=== PATIENT | female | born 1980 | race Caucasian/White ===

== ENCOUNTER 2017-10-04 18:57 | Emergency (ER) | payer BC ==
[2017-10-04 19:43] LABS: PLATELET COUNT 230 10^3/uL (150-400)
--- NOTE | 2017-10-04 19:51 | EDPHY ---
H & P Time Seen by Provider: 10/04/17 19:50 HPI/ROS: Chief complaint. Abdominal pain HPI. 37-year-old female visiting from [facility]. Low abdominal pain that began last night. It is worse with movement. Nausea without vomiting or diarrhea. Pain is across the low abdomen as sharp and crampy. Right equals left. Pain is worse with movement and walking. No urinary symptoms. No fever. No chest discomfort or trouble breathing. No similar symptoms previously. No previous abdominal surgery. ROS Constitutional. no fever/chills, no weakness Eyes. no problems with vision ENT. no sore throat, no nasal drainage Cardiovascular. no chest pain Respiratory. no shortness of breath, no cough Abdominal. Low abdominal pain with nausea . no problems urinating MS. no calf pain/swelling, no neck/back pain, no joint pain Skin. no rash Lymph. no swollen glands Neuro. no headache, no dizziness, no difficulty walking or with speech Past Medical/Surgical History: Orthopedic surgery, IUD Social History: Single, nonsmoker, no alcohol Smoking Status: Never smoked Physical Exam: General Appearance: Alert well-developed female mild distress vital signs are stable Eyes: Pupils equal and round no pallor or injection. ENT, Mouth: Mucous membranes are moist. Respiratory: There are no retractions, lungs are clear to auscultation. Cardiovascular: Regular rate and rhythm. Gastrointestinal: Abdomen is soft suprapubic tenderness and both adnexal tenderness. No particular pain at McBurney's point. Normal bowel sounds. No masses Neurological: Awake and alert, sensory and motor exams grossly normal. Skin: Warm and dry, no rashes. Musculoskeletal: Neck is supple nontender. Extremities symmetrical, full range of motion. Psychiatric: Patient is oriented X 3, there is no agitation. Constitutional: Initial Vital Signs Heart Rate 59 L 10/04/17 19:08 Respiratory Rate 18 10/04/17 19:08 Blood Pressure 129/70 H 10/04/17 19:08 O2 Sat (%) 99 10/04/17 19:08 O2 Delivery Mode Room Air Allergies/Adverse Reactions: No Known Allergies Allergy (Unverified 10/04/17 19:08) Home Medications: Medication Instructions Recorded NK [No Known Home Meds] 10/04/17 Medical Decision Making - Diagnostics Imaging Results: Imaging Impressions Abdomen Ultrasound 10/04/17 20:17 Impression: Appendix not identified. Findings and recommendations discussed with Emergency Department physician, LEONOR BLOCK at 21:24 hour, 10/04/2017. Final report concurs with initial preliminary interpretation. Pelvic/Renal Ultrasound 10/04/17 20:17 Impression: 1. IUD appears in good position. 2. Right ovarian dominant follicle, measuring 1.8 cm. 3. No ovarian torsion or significant free fluid. Findings and recommendations discussed with Emergency Department physician, Leonor Block M.D., at 2123 hours, on October 04, 2017. Final report concurs with initial preliminary interpretation. Abdomen CT 10/04/17 21:48 Impression: 1. Constipation with a large amount of stool throughout the colon. 2. No CT evidence of appendicitis, abscess or bowel obstruction. Findings and recommendations discussed with Emergency Department physician, LEONOR BLOCK at 23:00 hour, 10/04/2017. Final report concurs with initial preliminary interpretation. Ultrasound shows IUD to be in good position. Ovarian cyst right ovary 1.8 cm. No torsion. No free fluid. Appendix not visualized. Reviewed by me and discussed with CT abdomen and pelvis shows constipation. No evidence for appendicitis, diverticulitis, bowel obstruction Procedures: IV normal saline. Morphine for pain. ED Course/Re-evaluation: Re-evaluation 9:35 p.m.. Patient and I discussed imaging and lab results. We discussed treatment plan including recommendation for CT. She expresses understanding and agreement Re-evaluation at 11:25 p.m.. Patient is stable. She and I discussed treatment plan including criteria for return importance of follow-up and further evaluation. She expresses understanding and agreement. Patient will be discharged with a bottle of GoLYTELY. Differential Diagnosis: I considered appendicitis, ectopic , urinary tract infection, ovarian cyst - Data Points Laboratory Results: Laboratory Results 10/04/17 19:20 10/04/17 19:20 10/04/17 10/04/17 10/04/17 22:04 19:20 19:20 WBC RBC Hgb Hct MCV MCH MCHC RDW Plt Count MPV Neut % (Auto) Lymph % (Auto) [place] % (Auto) Eos % (Auto) Baso % (Auto) Nucleat RBC Rel Count Absolute Neuts (auto) Absolute Lymphs (auto) Absolute Monos (auto) Absolute Eos (auto) Absolute Basos (auto) Absolute Nucleated RBC Immature Gran % Immature Gran # Sodium 140 mEq/L mEq/L (135-145) Potassium 4.4 mEq/L mEq/L (3.3-5.0) Chloride 101 mEq/L mEq/L (97-110) Carbon Dioxide 26 mEq/l mEq/l (22-31) Anion Gap 13 mEq/L mEq/L (8-16) BUN 18 mg/dL mg/dL (7-23) Creatinine 1.1 mg/dL H mg/dL (0.6-1.0) Estimated GFR 57 Glucose 93 mg/dL mg/dL (70-100) Calcium 9.4 mg/dL mg/dL (8.5-10.4) Beta HCG, Qual NEGATIVE Urine Color PALE YELLOW Urine Appearance CLEAR Urine pH 6.0 (5.0-7.5) Ur Specific [place] 1.005 (1.002-1.030) Urine Protein NEGATIVE (NEGATIVE) Urine Ketones NEGATIVE (NEGATIVE) Urine Blood NEGATIVE (NEGATIVE) Urine Nitrate NEGATIVE (NEGATIVE) Urine Bilirubin NEGATIVE (NEGATIVE) Urine Urobilinogen NEGATIVE EU EU (0.2-1.0) Ur Leukocyte Esterase NEGATIVE (NEGATIVE) Urine RBC 1-3 /hpf /hpf (0-3) Urine WBC 0-1 /hpf /hpf (0-3) Ur Epithelial Cells NONE SEEN /lpf /lpf (NONE-1+) Urine Bacteria TRACE /hpf H /hpf (NONE SEEN) Urine Glucose NEGATIVE (NEGATIVE) 10/04/17 19:20 WBC 11.04 10^3/uL H 10^3/uL (3.80-9.50) RBC 4.29 10^6/uL 10^6/uL (4.18-5.33) Hgb 13.9 g/dL g/dL (12.6-16.3) Hct 41.6 % % (38.0-47.0) MCV 97.0 fL fL (81.5-99.8) MCH 32.4 pg pg (27.9-34.1) MCHC 33.4 g/dL g/dL (32.4-36.7) RDW 12.6 % % (11.5-15.2) Plt Count 230 10^3/uL 10^3/uL (150-400) MPV 11.4 fL fL (8.7-11.7) Neut % (Auto) 65.3 % % (39.3-74.2) Lymph % (Auto) 24.8 % % (15.0-45.0) [place] % (Auto) 8.0 % % (4.5-13.0) Eos % (Auto) 1.1 % % (0.6-7.6) Baso % (Auto) 0.4 % % (0.3-1.7) Nucleat RBC Rel Count 0.0 % % (0.0-0.2) Absolute Neuts (auto) 7.22 10^3/uL H 10^3/uL (1.70-6.50) Absolute Lymphs (auto) 2.74 10^3/uL 10^3/uL (1.00-3.00) Absolute Monos (auto) 0.88 10^3/uL H 10^3/uL (0.30-0.80) Absolute Eos (auto) 0.12 10^3/uL 10^3/uL (0.03-0.40) Absolute Basos (auto) 0.04 10^3/uL 10^3/uL (0.02-0.10) Absolute Nucleated RBC 0.00 10^3/uL 10^3/uL (0-0.01) Immature Gran % 0.4 % % (0.0-1.1) Immature Gran # 0.04 10^3/uL 10^3/uL (0.00-0.10) Sodium Potassium Chloride Carbon Dioxide Anion Gap BUN Creatinine Estimated GFR Glucose Calcium Beta HCG, Qual Urine Color Urine Appearance Urine pH Ur Specific [place] Urine Protein Urine Ketones Urine Blood Urine Nitrate Urine Bilirubin Urine Urobilinogen Ur Leukocyte Esterase Urine RBC Urine WBC Ur Epithelial Cells Urine Bacteria Urine Glucose Medications Given: Discontinued Medications Sodium Chloride (Ns) 1,000 mls @ 0 mls/hr IV EDNOW ONE; Wide Open PRN Reason: Protocol Stop: 10/04/17 20:18 Last Admin: 10/04/17 20:26 Dose: 1,000 mls Morphine Sulfate (Morphine) 4 mg IVP EDNOW ONE Stop: 10/04/17 20:18 Last Admin: 10/04/17 20:27 Dose: 4 mg Ondansetron HCl (Zofran) 4 mg IVP EDNOW ONE Stop: 10/04/17 20:28 Last Admin: 10/04/17 20:28 Dose: 4 mg Polyethylene Glycol/Electrolytes (Gavilyte - G) 4,000 ml PO ONCE ONE Stop: 10/04/17 23:08 Last Admin: 10/04/17 23:19 Dose: 4,000 ml Departure - Departure Disposition: Home, Routine, Self-Care Clinical Impression: Abdominal pain Qualifiers: Abdominal location: lower abdomen, unspecified Qualified Code(s): R10.30 - Lower abdominal pain, unspecified Condition: Good Instructions: Constipation (ED) Additional Instructions: Increased fluids including fruit and prune juice. Drink whole bottle GoLYTELY. Drink 8 oz every 10 min until 4 L or consumed or until fluid coming out of your bottom is clear. Return for worsening pain, fever, vomiting. Recheck in 1 day if not improved Referrals: NONE *PRIMARY CARE P,. [Primary Care Provider] - As per Instructions
[2017-10-04] MEDS ORDERED: NS 1,000 ML IV ONE (20:17)
[2017-10-04] MEDS ORDERED: ONDANSETRON 4 MG/2 ML VIAL ONE (20:25)
[2017-10-04] MEDS ORDERED: ONDANSETRON 4 MG/2 ML VIAL IVP ONE (20:27)
[2017-10-04 20:30] VITALS: BP 117/78
[2017-10-04] MEDS ORDERED: IOPAMIDOL (ISOVUE-300) 100 ML BTL ONE (21:54)
[2017-10-04] MEDS ORDERED: PEG 3350/NA SULF,BICARB,CL/KCL (GAVILYTE-G) 4000 ML BTL PO ONE (23:07)
== END 2017-10-04 23:49 | disposition home or self-care (01) ==
DX: R10.30 Lower abdominal pain, unspecified (principal); E86.9 Volume depletion, unspecified
CPT/HCPCS: 96374; J2270; J2405; Q9967